=== PATIENT | male | born 1975 | race Caucasian/White ===

== ENCOUNTER 2020-03-20 07:43 | Day surgery (SDC) | payer OTHER ==
[~2020-03-20] VITALS: Ht 177.8 cm; Wt 138.7 kg
[2020-03-20] MEDS ORDERED: NORVASC 10MG10 MG PO (08:40)
[2020-03-20] MEDS ORDERED: NAPROSYN500 MG PO (08:40)
[2020-03-20] MEDS ORDERED: PRINIVIL40 MG PO (08:41)
[2020-03-20] MEDS ORDERED: LOPRESSOR 550 MG/TAB PO (08:41)
[2020-03-20] MEDS ORDERED: PRIL40 PO (08:41)
[2020-03-20] MEDS ORDERED: ASPIRIN 81M81 MG/TA2 PO (08:41)
[2020-03-20 08:42] VITALS: BP 162/95; PULSE 71; TEMP 98.5
[2020-03-20] MEDS ORDERED: NORCO 325 MG-51 TAB PO (10:47)
[2020-03-20 11:30] VITALS: BP 122/71; PULSE 66; TEMP 97.5
--- NOTE | 2020-03-20 11:30 | NUR ---
Patient arrives to [facility] [place] [facility] via cart, accompanied by [employer] Melvina. He is drowsy, but awake and oriented. Monitoring is applied - VSS and WNL on 2L nasal cannula. Oxygen is titrated to off and patient sustains SpO2 >92% on room air. He denies pain or nausea. He has 3 surgical incisions on his abdomen, all with clean/dry/intact dressings. Abdomen is rounded (obese), soft, and tender. His family is at the bedside. Lights are dimmed for comfort. He has ice chips. Call light in reach. Will continue to monitor.
[2020-03-20 11:45] VITALS: BP 139/75; PULSE 68
--- NOTE | 2020-03-20 11:45 | NUR ---
Patient is resting comfortably in his room, watching TV. He denies pain or nausea. He is offered and receives water and crackers for PO intake.
[2020-03-20 12:00] VITALS: BP 133/80; PULSE 70
--- NOTE | 2020-03-20 12:00 | NUR ---
Patient is resting comfortably. He states he is feeling "more awake". VSS on room air. Denies pain/nausea. He has drank 1 cup of water and ate 6 crackers. He is given more water and a blueberry muffin.
[2020-03-20 12:15] VITALS: BP 135/81; PULSE 40
[2020-03-20 12:30] VITALS: BP 140/80; PULSE 74
--- NOTE | 2020-03-20 12:30 | NUR ---
Patient is resting comfortably in his room. VSS and WNL on room air. Operative sites x3 remain covered with clean/dry/intact bandaids. He denies pain or nausea. He ate his muffin and drank a second glass of water.
--- NOTE | 2020-03-20 12:40 | NUR ---
Patient ambulates to the restroom with standby assist and steady gait. He voids large amount clear/yellow urine and returns to room.
--- NOTE | 2020-03-20 13:05 | NUR ---
Patient has met discharge criteria. Discharge instructions are discussed. He denies questions and verbalizes understanding. Dr. Fischer' office nurse will contact him to schedule a follow-up appointment. PIV is removed with catheter intact and hemostasis achieved. He changes to his clothing independently. He is escorted to the exit via wheelchair by staff. He is discharged to home with ride (his [id number]) in private vehicle at 1305.
== END 2020-03-20 13:05 | disposition home or self-care (01) ==
LOC: SDCO 07:43
DX: K85.10 Biliary acute pancreatitis without necrosis or infection (principal); I10 Essential (primary) hypertension; F17.210 Nicotine dependence, cigarettes, uncomplicated; E66.01 Morbid (severe) obesity due to excess calories; Z68.41 Body mass index [BMI] 40.0-44.9, adult; G47.33 Obstructive sleep apnea (adult) (pediatric); Z79.899 Other long term (current) drug therapy; Z79.82 Long term (current) use of aspirin; M19.90 Unspecified osteoarthritis, unspecified site
CPT/HCPCS: J0690; J1100; J1885; J2405; J2704; J3010; J7120; Q9967